=== PATIENT | female | born 1975 | race Caucasian/White ===

== ENCOUNTER → 2019-09-12 13:18 | Outpatient (BNVA) | payer SELFPAY | PROVIDERS: Family Provider Nurse Practitioner Family; PCP Nurse Practitioner Family; Visit Provider Nurse Practitioner Family | DX: N30.01 Acute cystitis with hematuria (principal); R60.9 Edema, unspecified; R30.0 Dysuria | CPT/HCPCS: 80053; 81000; 87077; 87086; 87186 ==

== ENCOUNTER → 2019-09-28 10:01 | Outpatient (BNVA) | payer SELFPAY | PROVIDERS: Family Provider Nurse Practitioner Family; PCP Nurse Practitioner Family; Visit Provider Nurse Practitioner Family | DX: N39.0 Urinary tract infection, site not specified (principal); M54.2 Cervicalgia | CPT/HCPCS: 80053 ==

== ENCOUNTER → 2019-10-04 13:43 | Outpatient (BNVA) | payer SELFPAY | PROVIDERS: Family Provider Nurse Practitioner Family; PCP Nurse Practitioner Family; Visit Provider Registered Nurse | DX: N39.0 Urinary tract infection, site not specified (principal) | CPT/HCPCS: 81000 ==

== ENCOUNTER → 2020-01-01 09:24 | Outpatient (BNVA) | payer SELFPAY | PROVIDERS: Family Provider Nurse Practitioner Family; PCP Nurse Practitioner Family; Visit Provider Nurse Practitioner Family | DX: M25.50 Pain in unspecified joint (principal) | CPT/HCPCS: 85651; 86431 ==

== ENCOUNTER 2020-06-03 08:41 | Outpatient (CLI) | payer SELFPAY ==
--- NOTE | 2020-06-03 08:44 | MM_ITS ---
WS: [id number] BILATERAL DIGITAL SCREENING MAMMOGRAM WITH CAD CLINICAL INFORMATION: SCREENING HISTORY: Screening mammogram. No current complaints. COMPARISON: TECHNIQUE: Bilateral CC and MLO. FINDINGS: The breast are composed of extremely dense tissue, which can limit the detection of small underlying mass lesions. No suspicious focal mass, asymmetry, calcifications, or architectural distortion. No ev idence of malignancy. Punctate and lucent centered calcifications. MM/[place] [id number] IMPRESSION: BI-RADS: 2-Benign FOLLOW UP: 1 Year Follow-up Recommend return to annual screening mammography.
== END 2020-06-03 08:42 | disposition home or self-care (01) ==
LOC: RADSHAW 08:43
PROVIDERS: PCP Family Medicine; Visit Provider Nurse Practitioner Family
DX: Z12.31 Encounter for screening mammogram for malignant neoplasm of breast (principal)
CPT/HCPCS: 77067

== ENCOUNTER 2021-06-04 12:46 | Outpatient (CLI) | payer SELFPAY ==
--- NOTE | 2021-06-04 13:07 | MM_ITS ---
WS: [email or web address] SCREENING DIGITAL MAMMOGRAM WITH CAD HISTORY: SCREENING COMPARISON: 06/03/2020, 05/24/2018 and 05/11/2017 Bilateral CC and MLO views submitted. Computer aided detection analyzed. Breast composition: The breasts are extremely dense, which lowers the sensitivity of mammography. Sunni ear distribution of calcifications in the upper outer quadrant of the RIGHT breast, posterior. These are very difficult to visualize due to the dense fibroglandular tissue. No distortion. LEFT breast is negative. MM/[place] [id number] IMPRESSION: BI-RADS: 0-Incomplete: Need additional imaging evaluation FOLLOW UP: Need Additional Imaging RIGHT BREAST: Magnification views of suspicious calcification CC and MLO. True ML.
== END 2021-06-04 12:47 | disposition home or self-care (01) ==
PROVIDERS: PCP Family Medicine; Visit Provider Family Medicine
DX: Z12.31 Encounter for screening mammogram for malignant neoplasm of breast (principal)
CPT/HCPCS: 77067

== ENCOUNTER 2021-07-04 09:09 | Outpatient (CLI) | payer SELFPAY ==
--- NOTE | 2021-07-04 09:28 | MM_ITS ---
WS: [email or web address] ADDITIONAL VIEWS RIGHT MAMMOGRAM 3-D. HISTORY: Calcifications upper outer quadrant RIGHT breast. COMPARISON: 06/04/2021, 06/03/2020 and 05/24/2018 Magnification views RIGHT breast in CC, MLO projections and true ML submitted. Magnification views are performed of the calcifications in the upper-outer quadrant of the RIGHT [address]. These calcifications are obscured and very difficult to evaluate due to the dense fibroglandular tissue. The calcifications are in a more diffuse than focal or cluster or in the duct distribution. MM/[place] [id number] IMPRESSION: BI-RADS: 3-Probably Benign FOLLOW UP: 6 Month Follow-up Follow up RIGHT breast mammogram in 6 months with magnification views.
== END 2021-07-04 09:10 | disposition home or self-care (01) ==
PROVIDERS: PCP Nurse Practitioner Family; Visit Provider Nurse Practitioner Family
DX: R92.1 Mammographic calcification found on diagnostic imaging of breast (principal)
CPT/HCPCS: 77061

== ENCOUNTER 2022-01-07 09:14 | Outpatient (CLI) | payer SELFPAY ==
--- NOTE | 2022-01-07 09:22 | MM_ITS ---
WS: [email or web address] DIAGNOSTIC RIGHT DIGITAL TOMOSYNTHESIS MAMMOGRAPHY WITH CAD. HISTORY: 6 MO F/U ABNORMAL MAMMOGRAM, follow-up calcifications. COMPARISON: 07/04/2021, 06/04/2021, 06/03/2020 and 05/24/2018 Technique: CC, MLO and ML views. Magnification views. Breast composition: The breasts are extremely dense, which lowers the sensitivity of mammography. Th ere is dense breast tissue makes evaluation of these very fine calcifications difficult. Calcificatio ns are scattered rather than clustered within a focal region. No obvious increase in number or size o f these calcifications. MM/[place] [id number] IMPRESSION: BI-RADS: 3-Probably Benign FOLLOW UP: 6 Month Follow-up No interval change in these calcifications since 06/04/2021. Patient is to return for annual mammogram in June 2022. These calcifications can be reevaluated at that time with magnification views.
== END 2022-01-07 09:15 | disposition home or self-care (01) ==
LOC: RAD 09:15
PROVIDERS: PCP Registered Nurse; Visit Provider Registered Nurse
DX: R92.8 Other abnormal and inconclusive findings on diagnostic imaging of breast (principal); R92.1 Mammographic calcification found on diagnostic imaging of breast
CPT/HCPCS: 77061

== ENCOUNTER 2022-03-18 12:34 | Outpatient (CLI) | payer SELFPAY ==
--- NOTE | 2022-03-18 13:05 | US_ITS ---
WS: [email or web address] INDICATION: Palpable area RIGHT axilla TECHNIQUE: Ultrasound soft tissue FINDINGS: Ultrasound soft tissue area of concern RIGHT axilla. Normal underlying soft tissue in the a gen of concern. No cystic or solid mass. No suspicious lesions. US/US soft tissue/extremity [id number] IMPRESSION: Normal ultrasound exam
== END 2022-03-18 12:35 | disposition home or self-care (01) ==
LOC: RAD 12:36
PROVIDERS: PCP Registered Nurse; Visit Provider Registered Nurse
DX: R22.9 Localized swelling, mass and lump, unspecified (principal)
CPT/HCPCS: 76882

== ENCOUNTER 2022-04-09 14:06 | Outpatient (CLI) | payer SELFPAY ==
--- NOTE | 2022-04-09 | USR_ITS ---
PROCEDURE INFORMATION: Exam: US Soft Tissue Head and Neck, Thyroid Exam date and time: 04/09/2022 2:37 PM Age: 46 years old Clinical indication: Mass, lump, or swelling in neck; Left; Patient HX: PT states she feels a mass on the lt side of her neck; Additional info: Non toxic thyroid nodule TECHNIQUE: Imaging protocol: Real-time ultrasound scan of the neck with image documentation. Exam focused on the thyroid. COMPARISON: US soft tissue/extremity [id number] 03/18/2022 1:20 PM FINDINGS: Right thyroid lobe: Right thyroid lobe measures 1.4 x 1.3 x 4.9 cm with an estimated volume of 4.6 cc. No nodules. Left thyroid lobe: Left thyroid lobe measures 1.7 x 1.3 x 4.0 cm with an estimated volume of 4.7 cc. No nodules. Isthmus: No nodules. Lymph nodes: Right cervical chain lymph node was seen and measured with short axis of 5 mm, within normal limits, and morphologically normal. US/US thyroid [id number] IMPRESSION: Unremarkable thyroid.
== END 2022-04-09 14:07 | disposition home or self-care (01) ==
LOC: RAD 14:09
PROVIDERS: PCP Registered Nurse; Visit Provider Registered Nurse
DX: E04.1 Nontoxic single thyroid nodule (principal)
CPT/HCPCS: 76536

== ENCOUNTER 2022-07-06 14:38 | Outpatient (CLI) | payer SELFPAY ==
--- NOTE | 2022-07-06 14:51 | MM_ITS ---
WS: [email or web address] DIAGNOSTIC BILATERAL DIGITAL BREAST TOMOSYNTHESIS MAMMOGRAPHY WITH CAD HISTORY: 6MFU CALC COMPARISON: 01/07/2022, 07/04/2021 and 06/04/2021 TECHNIQUE: Bilateral craniocaudad, mediolateral oblique, and mediolateral views are submitted with to mosynthesis and SM. Magnification views RIGHT CC and MLO. Computer aided detection utilized. Breast composition: The breasts are extremely dense, which lowers the sensitivity of mammography. Murali cifications are not significantly changed in the upper outer quadrant RIGHT breast. No increase in si ze or number of calcifications. Very dense fibroglandular tissue. No distortion. MM/[place] [id number] IMPRESSION: BI-RADS: 2-Benign FOLLOW UP: 1 Year Follow-up Return to annual screening mammography.
--- NOTE | 2022-07-06 15:01 | XR_ITS ---
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 No periosteal reaction or erosions. Joint spaces of the left hand are intact and relatively well-preserved. Mild changes of osteoarthriti s in the joints of the thumb with mild joint space narrowing and subchondral sclerosis. Mild subluxat ion at the metacarpal phalangeal joint. No soft tissue abnormality. XR/XR hand LT min 3V* [id number] IMPRESSION: Mild osteoarthritis of the thumb.
--- NOTE | 2022-07-06 15:01 | XR_ITS ---
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 No erosions or periosteal reaction. Joint spaces of the right hand are intact and relatively well-preserved. Mild changes of osteoarthrit is in the joints of the thumb with mild narrowing of the joint spaces and subchondral sclerosis. Mild subluxation at the metacarpal phalangeal joint. No soft tissue abnormality. XR/XR hand RT min 3V* [id number] IMPRESSION: Mild changes of osteoarthritis in the thumb.
--- NOTE | 2022-07-06 15:01 | XR_ITS ---
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 No focal bone lesion, erosion, or periosteal reac tion. Joint spaces in the forefoot are intact and relatively well-preserved. Mild valgus deformities at the first MP and PIP joints of the great toe. The Lisfranc, intertarsal, and Chopart joints are intact and relatively well-preserved. No focal bone abnormality in the midfoot. The subtalar joint is intact and well preserved. Small calcaneal Achilles enthesophyte, otherwise, no significant bone abnormality in the hindfoot. XR/XR foot RT min 3V* [id number] IMPRESSION: Small calcaneal enthesophyte.
--- NOTE | 2022-07-06 15:01 | XR_ITS ---
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 No periosteal reaction or erosion. Joint spaces of the forefoot are intact and relatively well-preserved. Minimal valgus deformity at th e MTP and PIP joints of the great toe. The Lisfranc, intertarsal, and Chopart joints are intact and well preserved. No focal bone abnormality in the midfoot. The subtalar joint is intact and well preserved. Small calcaneal Achilles enthesophyte. Mild elongation of the trigone process of the talus. Otherwise , no significant bone abnormality in the hindfoot. XR/XR foot LT min 3V* [id number] IMPRESSION: Calcaneal enthesophyte.
== END 2022-07-06 14:39 | disposition home or self-care (01) ==
PROVIDERS: PCP Registered Nurse; Visit Provider Registered Nurse
DX: M19.90 Unspecified osteoarthritis, unspecified site (principal); Z79.899 Other long term (current) drug therapy; R92.1 Mammographic calcification found on diagnostic imaging of breast; Z11.59 Encounter for screening for other viral diseases; M19.042 Primary osteoarthritis, left hand; M19.041 Primary osteoarthritis, right hand; M77.32 Calcaneal spur, left foot; M77.31 Calcaneal spur, right foot
CPT/HCPCS: 36415; 73130; 73630; 77062; 80076; 82306; 85025; 85651; 86140; 86200; 86480; 86704; 86803; 87340; G0279

== ENCOUNTER 2022-11-11 10:19 | Outpatient (CLI) | payer SELFPAY ==
[2022-11-11 11:02] LABS: Basophils % 0.5 %; Eosinophils # 0.2 10^3/uL (0.0-0.8); Eosinophils % 2.4 %; Hematocrit 39.7 % (37.0-47.0); Hemoglobin 13.2 g/dL (11.5-15.3); Lymphocytes # 1.6 10^3/uL (0.8-4.8); Lymphocytes % 19.6 %; Mean Corpuscular HGB Conc 33.2 g/dL (30.0-36.0); Mean Corpuscular Hemoglobin 29.8 pg (28.0-34.0); Mean Corpuscular Volume 89.6 fl (81-99); Mean Platelet Volume 9.9 fL (7.4-10.4); Monocytes # 0.4 10^3/uL (0.2-0.9); Monocytes % 5.3 %; Neutrophils # 5.72 10^3/uL (1.8-7.7); Neutrophils % 71.9 %; Nucleated Red Blood Cells % 0 %; Platelet Count 282 10^3/cmm (130-400); Red Blood Count 4.43 10^6/uL (4.1-5.3); Red Cell Distribution Width 13.2 % (12.1-15.1)
[2022-11-11 11:45] LABS: Alanine Aminotransferase 19 U/L (0-33); Albumin Level 4.3 g/dL (3.5-5.2); Alkaline Phosphatase 59 U/L (35-105); Aspartate Amino Transferase 21 U/L (0-32); Globulin 2.4 g/dL (1.3-4.6); Glomerular Filtration Rate 106.7 mL/min (90-130); Total Bilirubin 0.6 mg/dL (0.15-1.2); Total Protein 6.7 g/dL (6.6-8.7)
== END 2022-11-11 10:20 | disposition home or self-care (01) ==
PROVIDERS: PCP Nurse Practitioner Family; Visit Provider Internal Medicine Rheumatology
DX: M05.79 Rheumatoid arthritis with rheumatoid factor of multiple sites without organ or systems involvement (principal); Z79.899 Other long term (current) drug therapy
CPT/HCPCS: 36415; 80076; 82565; 85025; 86140

== ENCOUNTER → 2023-03-03 11:27 | Outpatient (BNVA) | payer SELFPAY | PROVIDERS: PCP Nurse Practitioner Family; Visit Provider Internal Medicine Rheumatology | DX: M05.79 Rheumatoid arthritis with rheumatoid factor of multiple sites without organ or systems involvement (principal); Z79.899 Other long term (current) drug therapy; Z71.85 Encounter for immunization safety counseling; G54.8 Other nerve root and plexus disorders | CPT/HCPCS: 36415; 80076; 82565; 85025; 86140 ==

== ENCOUNTER 2023-07-08 09:54 | Outpatient (CLI) | payer SELFPAY ==
--- NOTE | 2023-07-08 09:59 | MM_ITS ---
WS: [email or web address] BILATERAL SCREENING DIGITAL TOMOSYNTHESIS MAMMOGRAM WITH CAD HISTORY: SCREENING COMPARISON: 07/06/2022, 01/07/2022 and 06/04/2021 Bilateral CC and MLO views with tomosynthesis and synthetic mammography submitted. Computer aided det ection analyzed. Breast composition: The breasts are heterogeneously dense, which may obscure small masses. No suspici ous masses, microcalcifications or architectural distortion. Asymmetries are stable. Benign calcifica tion RIGHT breast. IMPRESSION: MM/[place] [id number] BI-RADS: 2-Benign FOLLOW UP: 1 Year Follow-up
== END 2023-07-08 09:55 | disposition home or self-care (01) ==
LOC: RAD 09:55
PROVIDERS: PCP Nurse Practitioner Family; Visit Provider Nurse Practitioner Family
DX: Z12.31 Encounter for screening mammogram for malignant neoplasm of breast (principal)
CPT/HCPCS: 77063; 77067

== ENCOUNTER → 2023-10-13 14:51 | Outpatient (BNVA) | payer SELFPAY | PROVIDERS: PCP Nurse Practitioner Family; Visit Provider Internal Medicine Rheumatology | DX: M05.79 Rheumatoid arthritis with rheumatoid factor of multiple sites without organ or systems involvement (principal); Z79.899 Other long term (current) drug therapy; Z71.85 Encounter for immunization safety counseling; G54.8 Other nerve root and plexus disorders | CPT/HCPCS: 36415; 80076; 82565; 85025; 85651; 86140 ==

== ENCOUNTER → 2024-03-07 12:05 | Outpatient (BNVA) | payer SELFPAY | PROVIDERS: PCP Nurse Practitioner Family; Visit Provider Internal Medicine Rheumatology | DX: Z79.899 Other long term (current) drug therapy (principal); M05.79 Rheumatoid arthritis with rheumatoid factor of multiple sites without organ or systems involvement | CPT/HCPCS: 36415; 80076; 82565; 85025; 85651; 86140 ==

== ENCOUNTER 2024-05-29 09:20 | Outpatient (CLI) | payer SELFPAY ==
--- NOTE | 2024-05-29 09:23 | MM_ITS ---
WS: [email or web address] DIAGNOSTIC BILATERAL DIGITAL BREAST TOMOSYNTHESIS MAMMOGRAPHY WITH CAD LEFT breast ultrasound, limited HISTORY: MASS OF UPPER OUTER QUAD OF L BREAST COMPARISON: 07/08/2023, 07/06/2022, 06/03/2020 TECHNIQUE: Bilateral craniocaudad, mediolateral oblique, and mediolateral views are submitted with tomosynthesis and SM. Spot compression LEFT CC and MLO. Computer aided detection utilized. Breast composition: The breasts are extremely dense, which lowers the sensitivity of mammography. Triangular marker in the upper outer quadrant of the LEFT breast corresponds to very dense tissue. There is no distortion. Very similar appearance as to prior mammograms. There are additional calcifications scattered throughout each breast. No suspicious grouping of calcification. LEFT breast ultrasound, limited. Ultrasound LEFT breast at 3:00 demonstrates a large simple cystic mass with through transmission measuring 3.1 x 1.8 x 1.5 cm. This corresponds to the palpable and mammographic abnormality. There are additional smaller cysts scattered throughout the upper outer quadrant. Very dense fibroglandular echot exture. MM/MM diag BI tomosynthesis [id number] IMPRESSION: BI-RADS: 2 - Benign FOLLOW UP: 1 Year Follow-up Palpable abnormality in the upper outer quadrant of the LEFT breast corresponds to a large simple cyst.
== END 2024-05-29 09:21 | disposition home or self-care (01) ==
LOC: RAD 09:21
PROVIDERS: PCP Registered Nurse; Visit Provider Registered Nurse
DX: N63.21 Unspecified lump in the left breast, upper outer quadrant (principal); Z80.3 Family history of malignant neoplasm of breast; R92.343 Mammographic extreme density, bilateral breasts; R92.1 Mammographic calcification found on diagnostic imaging of breast; N60.12 Diffuse cystic mastopathy of left breast
CPT/HCPCS: 76642; 77062; G0279

== ENCOUNTER → 2024-08-01 12:09 | Outpatient (BNVA) | payer SELFPAY | PROVIDERS: PCP Nurse Practitioner Family; Visit Provider Internal Medicine Rheumatology | DX: Z79.899 Other long term (current) drug therapy (principal) | CPT/HCPCS: 36415; 80076; 82565; 85025; 85651; 86140 ==